=== PATIENT | male | born 1985 | race Hispanic/Latino ===

== ENCOUNTER 2019-01-26 13:51 | Emergency (ER) | payer SELFPAY ==
[2019-01-26] MEDS ORDERED: ONDANSETRON 4 MG/2 ML VIAL ONE (15:52)
[2019-01-26] MEDS ORDERED: FENTANYL CITR 100 MCG/2 ML ONE (15:52)
[2019-01-26 16:02] LABS: Absolute Lymphocytes (CBC) 2.5 K/uL (0.7-4.9); Absolute Neutrophil 7.9 K/uL (1.8-8.0); Basophils % 0.5 % (0-1.3); Eosinophils % 0.7 % (0-4.4); Hematocrit 48.8 % (39.6-49.0); Lymphocytes % 21.5 % (15.3-44.8); MPV 8.9 fL (7.6-11.3); RBC Red Blood Cell Count 5.44 M/uL (4.33-5.43)
[2019-01-26 16:23] LABS: ALT/SGPT 124 U/L (12-78); AST/SGOT 55 U/L (15-37); Albumin 4.5 g/dL (3.4-5.0); Alkaline Phosphatase 84 U/L (45-117); BUN Blood Urea Nitrogen 10 mg/dL (7-18); Bicarbonate 30 mmol/L (21-32); Bilirubin Direct 0.2 mg/dL (0-0.2); Bilirubin Total 0.8 mg/dL (0.2-1.0); Glucose Level 103 mg/dL (74-106); Lipase 87 U/L (73-393); Potassium 3.7 mmol/L (3.5-5.1); Protein, Total 8.8 g/dL (6.4-8.2); Sodium Level 136 mmol/L (136-145)
--- NOTE | 2019-01-26 17:10 | RAD REPORT ---
EXAM DESCRIPTION: CTAbdomen Pelvis W Contrast - 01/26/2019 4:56 pm CLINICAL HISTORY: Abdominal pain. IV only. Ventral hernia pain;Abd pain COMPARISON: No comparisons TECHNIQUE: Biphasic CT imaging of the abdomen and pelvis was performed with 100 ml non-ionic IV cont rast. All CT scans are performed using dose optimization technique as appropriate and may include automated exposure control or mA/KV adjustment according to patient size. FINDINGS: The lung bases are clear. The liver demonstrates diffuse fatty infiltration. The spleen, pancreas, adrenal glands and kidneys a re within normal limits. No bowel obstruction, free air, free fluid or abscess. The appendix is normal. No evidence of signi ficant lymphadenopathy. No suspicious bony findings. IMPRESSION: No acute intra-abdominal or pelvic finding.
--- NOTE | 2019-01-26 17:25 | ER ---
Nurse's Notes [facility] Name: Pravin Sepulveda Age: 33 yrs Sex: Male : 1985 Arrival Date: 01/26/2019 Time: 13:53 Bed 25 Private MD: Chucho Andrew Diagnosis: Unspecified abdominal hernia Presentation: 01/26 14:07 Presenting complaint: :LUQ pain and N/V x 2 days. Denies diarrhea/fever. Transition of hb care: patient was not received from another setting of care. Onset of symptoms was January 25, 2019. Risk Assessment: Do you want to hurt yourself or someone else? Patient reports no desire to harm self or others. Care prior to arrival: None. 14:07 Method Of Arrival: Ambulatory hb 14:07 Acuity: ROMEO 3 hb 16:18 Initial Sepsis Screen: Does the patient meet any 2 criteria? No. Patient's initial rv sepsis screen is negative. Does the patient have a suspected source of infection? No. Patient's initial sepsis screen is negative. Historical: - Allergies: 14:08 No Known Allergies; hb - PSHx: 14:08 None; hb - Immunization history:: Adult Immunizations up to date. - Social history:: Smoking status: Patient/guardian denies using tobacco. - Ebola Screening: : No symptoms or risks identified at this time. Screenin:18 Abuse screen: Denies threats or abuse. Denies injuries from another. Nutritional rv screening: No deficits noted. Tuberculosis screening: No symptoms or risk factors identified. Fall Risk None identified. Assessment: 16:17 General: Appears in no apparent distress. comfortable, Behavior is calm, cooperative. rv Pain: Complains of pain in abdomen. Neuro: Level of Consciousness is awake, alert, obeys commands, Oriented to person, place, time, situation. Cardiovascular: Capillary refill < 3 seconds. Respiratory: Airway is patent. GI: Bowel sounds present X 4 quads. Abd is soft and non tender X 4 quads. : No signs and/or symptoms were reported regarding the genitourinary system. EENT: No signs and/or symptoms were reported regarding the EENT system. Derm: Skin is intact. Musculoskeletal: No signs and/or symptoms reported regarding the musculoskeletal system. 16:28 Reassessment: Patient appears in no apparent distress at this time. Patient and/or rv family updated on plan of care and expected duration. Pain level reassessed. Patient is alert, oriented x 3, equal unlabored respirations, skin warm/dry/pink. Patient states feeling better. Patient states symptoms have improved. Vital Signs: 14:08 BP 140 / 99; Pulse 102; Resp 18; Temp 98.7; Pulse Ox 98% on R/A; Pain 8/10; hb 15:56 BP 124 / 85; Pulse 82; Resp 16; Temp 98.5; Pulse Ox 99% ; lt1 17:27 BP 121 / 85 RA; Pulse 83; Resp 18 S; Pulse Ox 98% on R/A; rv ED Course: 13:53 Patient arrived in ED. as 13:53 Chucho Andrew MD is Private Physician. as 14:08 Triage completed. hb 14:08 Arm band placed on. hb 15:08 Rusty Soto PA is PHCP. jr8 15:08 Wilman Schroeder MD is Attending Physician. jr8 15:36 Initial lab(s) drawn, by me, sent to lab. Inserted saline lock: 20 gauge in left lt1 antecubital area, using aseptic technique. 16:18 Patient has correct armband on for positive identification. Bed in low position. Call rv light in reach. Side rails up X 1. Pulse ox on. NIBP on. 16:[address] via wheelchair. vm2 16:55 CT completed. Patient tolerated procedure well. Patient moved back from CT. vm2 16:57 CT Abd/Pelvis - W/Contrast In Process Unspecified. EDMS 17:24 Curtis Hammer MD is Referral Physician. jr8 17:27 No provider procedures requiring assistance completed. IV discontinued, bleeding rv controlled, No redness/swelling at site. Pressure dressing applied. Administered Medications: 15:45 Drug: fentaNYL (PF) 50 mcg Route: IVP; Site: left antecubital; rv 16:28 Follow up: Response: Pain is decreased rv 15:45 Drug: Zofran 4 mg Route: IVP; Site: left antecubital; rv 16:28 Follow up: Response: Nausea is decreased rv Outcome: 17:24 Discharge ordered by . jr8 17:33 Discharged to home ambulatory. rv 17:33 Condition: good 17:33 Discharge instructions given to patient, Instructed on discharge instructions, follow up and referral plans. Demonstrated understanding of instructions, follow-up care. 17:34 Patient left the ED. rv Signatures: Dispatcher [employer] Sarai Diaz Josh, PA PA jr8 Verna Naidu, RN RN Adry Toth 2 Reji Mesa RN RN rv Tran, Leah 1
--- NOTE | 2019-01-26 17:25 | EDPHYS ---
Physician Documentation [facility] Name: Pravin Sepulveda Age: 33 yrs Sex: Male : 1985 Arrival Date: 01/26/2019 Time: 13:53 Bed 25 Private MD: Chucho Andrew ED Physician Wilman Schroeder HPI: 01/26 15:26 This 33 yrs old Male presents to ER via Ambulatory with complaints of jr8 Abdominal Pain, Vomiting. 15:26 The patient presents with abdominal pain in the upper abdomen. Onset: The jr8 symptoms/episode began/occurred acutely, yesterday. The symptoms do not radiate. Associated signs and symptoms: Pertinent positives: nausea and vomiting. The symptoms are described as sharp, stabbing. Modifying factors: The symptoms are alleviated by nothing, the symptoms are aggravated by movement, touching the area. Severity of pain: At its worst the pain was moderate in the emergency department the pain is unchanged. The patient has not experienced similar symptoms in the past. The patient has not recently seen a physician. Patient stated that since this past September has noticed bulge to mid abdomen. and him were playing last night and was hit in upper abdomen. Since then has had nausea and pain to upper abdomen around bulging site . Historical: - Allergies: 14:08 No Known Allergies; hb - PSHx: 14:08 None; hb - Immunization history:: Adult Immunizations up to date. - Social history:: Smoking status: Patient/guardian denies using tobacco. - Ebola Screening: : No symptoms or risks identified at this time. ROS: 15:26 Eyes: Negative for injury, pain, redness, and discharge, ENT: Negative for injury, jr8 pain, and discharge, Neck: Negative for injury, pain, and swelling, Cardiovascular: Negative for chest pain, palpitations, and edema, Respiratory: Negative for shortness of breath, cough, wheezing, and pleuritic chest pain, Back: Negative for injury and pain, MS/Extremity: Negative for injury and deformity, Skin: Negative for injury, rash, and discoloration, Neuro: Negative for headache, weakness, numbness, tingling, and seizure. 15:26 Abdomen/GI: Positive for abdominal pain, nausea and vomiting, Negative for diarrhea, constipation, abdominal cramps, abdominal distension, anorexia, dysphagia, hematemesis, black/tarry stool, rectal pain, rectal bleeding, bowel incontinence, flatulence. Exam: 15:26 Eyes: Pupils equal round and reactive to light, extra-ocular motions intact. Lids and jr8 lashes normal. Conjunctiva and sclera are non-icteric and not injected. Cornea within normal limits. Periorbital areas with no swelling, redness, or edema. ENT: Nares patent. No nasal discharge, no septal abnormalities noted. Tympanic membranes are normal and external auditory canals are clear. Oropharynx with no redness, swelling, or masses, exudates, or evidence of obstruction, uvula midline. Mucous membranes moist. Neck: Trachea midline, no thyromegaly or masses palpated, and no cervical lymphadenopathy. Supple, full range of motion without nuchal rigidity, or vertebral point tenderness. No Meningismus. Cardiovascular: Regular rate and rhythm with a normal S1 and S2. No gallops, murmurs, or rubs. Normal PMI, no JVD. No pulse deficits. Respiratory: Lungs have equal breath sounds bilaterally, clear to auscultation and percussion. No rales, rhonchi or wheezes noted. No increased work of breathing, no retractions or nasal flaring. Back: No spinal tenderness. No costovertebral tenderness. Full range of motion. Skin: Warm, dry with normal turgor. Normal color with no rashes, no lesions, and no evidence of cellulitis. MS/ Extremity: Pulses equal, no cyanosis. Neurovascular intact. Full, normal range of motion. Neuro: Awake and alert, GCS 15, oriented to person, place, time, and situation. Cranial nerves II-XII grossly intact. Motor strength 5/5 in all extremities. Sensory grossly intact. Cerebellar exam normal. Normal gait. 15:26 Abdomen/GI: Inspection: obese Bowel sounds: active, all quadrants, Palpation: soft, in all quadrants, moderate abdominal tenderness, in the mid upper abdomen just inferior and to the left of the epigastric region, mass, is not appreciated, rebound tenderness, is not appreciated, voluntary guarding, is not appreciated, involuntary guarding, is not appreciated, no appreciated organomegaly, Indicators: McBurney's point is not tender, Hancock's sign is negative, Rovsing's sign is negative, Liver: tenderness, is not appreciated, Hernia: noted in the epigastric area, tenderness, that is moderate. Vital Signs: 14:08 BP 140 / 99; Pulse 102; Resp 18; Temp 98.7; Pulse Ox 98% on R/A; Pain 8/10; hb 15:56 BP 124 / 85; Pulse 82; Resp 16; Temp 98.5; Pulse Ox 99% ; lt1 17:27 BP 121 / 85 RA; Pulse 83; Resp 18 S; Pulse Ox 98% on R/A; rv MDM: 15:08 Patient medically screened. jr8 17:20 Data reviewed: vital signs, nurses notes, lab test result(s), radiologic studies, CT jr8 scan. Data interpreted: Pulse oximetry: on room air is 99 %. Interpretation: normal. Counseling: I had a detailed discussion with the patient and/or guardian regarding: the historical points, exam findings, and any diagnostic results supporting the discharge/admit diagnosis, lab results, radiology results, the need for outpatient follow up, a general surgeon, to return to the emergency department if symptoms worsen or persist or if there are any questions or concerns that arise at home. ED course: No signs of bowel or omental incarceration or strangulation. No other acute abdominal findings. Will refer to Surgery to look at the ventral hernia. Patient good with this . 01/26 15:18 Order name: Basic Metabolic Panel; Complete Time: 16:28 jr8 01/26 15:18 Order name: CBC with Diff; Complete Time: 16:15 8 01/26 15:18 Order name: Creatinine for Radiology; Complete Time: 16:28 jr8 01/26 15:18 Order name: Hepatic Function; Complete Time: 16:28 jr8 01/26 15:18 Order name: Lipase; Complete Time: 16:28 jr8 01/26 15:18 Order name: CT Abd/Pelvis - W/Contrast; Complete Time: 17:13 8 01/26 15:18 Order name: IV Saline Lock; Complete Time: 15:36 jr8 01/26 15:18 Order name: Labs collected and sent; Complete Time: 15:36 jr Administered Medications: 15:45 Drug: fentaNYL (PF) 50 mcg Route: IVP; Site: left antecubital; rv 16:28 Follow up: Response: Pain is decreased rv 15:45 Drug: Zofran 4 mg Route: IVP; Site: left antecubital; rv 16:28 Follow up: Response: Nausea is decreased rv Disposition: 01/27 06:48 Co-signature as Attending Physician, Wilman Schroeder MD I agree with the assessment and rolan plan of care. Disposition: 01/26/19 17:24 Discharged to Home. Impression: Unspecified abdominal hernia. - Condition is Stable. - Discharge Instructions: Hernia, Adult. - Medication Reconciliation Form, Thank You Letter, Antibiotic Education, Prescription Opioid Use, Work release form form. - Follow up: Curtis Hammer MD; When: 1 week; Reason: Recheck today's complaints, Continuance of care, Re-evaluation by your physician. - Problem is new. - Symptoms have improved. Signatures: Dispatcher [employer] EDMS Wilman Schroeder MD MD cha Roszak, Josh, PA PA jr8 Verna Naidu, RN RN Reji Mesa RN RN rv Corrections: (The following items were deleted from the chart) 01/26 17:25 17:24 01/26/2019 17:24 Discharged to Home. Impression: Ventral hernia. Condition is jr8 Stable. Forms are Medication Reconciliation Form, Thank You Letter, Antibiotic Education, Prescription Opioid Use. Follow up: Curtis Hammer; When: 1 week; Reason: Recheck today's complaints, Continuance of care, Re-evaluation by your physician. Problem is new. Symptoms have improved. jr8 17:34 17:25 01/26/2019 17:24 Discharged to Home. Impression: Unspecified abdominal hernia. rv Condition is Stable. Discharge Instructions: Hernia, Adult. Forms are Medication Reconciliation Form, Thank You Letter, Antibiotic Education, Prescription Opioid Use. Follow up: Curtis Hammer; When: 1 week; Reason: Recheck today's complaints, Continuance of care, Re-evaluation by your physician. Problem is new. Symptoms have improved. jr8
== END 2019-01-26 17:34 | disposition home or self-care (01) ==
LOC: ER 13:51
DX: K46.9 Unspecified abdominal hernia without obstruction or gangrene (principal)
CPT/HCPCS: 36415; 74177; 80048; 80076; 83690; 85025; 96374; 96375; 99284; J2405; J3010; Q9967